=== PATIENT | female | born 1970 | race Caucasian/White ===

== ENCOUNTER 2024-08-25 14:59 | Inpatient (IN) | payer BC ==
[~2024-08-25] VITALS: Ht 170.2 cm; Wt 100.6 kg
[2024-08-25] MEDS ORDERED: LISINOPRIL10 MG PO (15:12)
[2024-08-25] MEDS ORDERED: LISINOPRIL-HCT1 EAC1 PO (15:12)
[2024-08-25] MEDS ORDERED: TORSEMIDE20 MG PO (15:12)
[2024-08-25] MEDS ORDERED: ATORVASTATIN CA20 MG PO (15:12)
[2024-08-25] MEDS ORDERED: METFORMIN HCL500 M1 PO (15:12)
[2024-08-25] MEDS ORDERED: AMLODIPINE BESYL5 MG PO (15:12)
[2024-08-25] MEDS ORDERED: VITAMIN D21250 MCG PO (15:13)
[2024-08-25] MEDS ORDERED: CARVEDILOL3.125 MG PO (15:13)
[2024-08-25] MEDS ORDERED: FERROUS SULFAT325 M1 PO (15:13)
[2024-08-25] MEDS ORDERED: LANTUS SOL100 UNIT/1 SUB-Q (15:13)
[2024-08-25] MEDS ORDERED: JARDIANCE25 MG PO (15:13)
[2024-08-25 15:37] LABS: ALBUMIN 2.7 g/dL (3.4-5.0); ALBUMIN/GLOBULIN RATIO 0.75 (1.1-2.4); ANION GAP 17.8 (7-21); BILIRUBIN, TOTAL 0.2 ng/dL (0.2-1.0); BUN/CREATININE RATIO 48.01 (6.0-28.6); CALCIUM 9.1 mg/dL (8.5-10.1); CREATININE, SERUM 2.52 mg/dL (0.55-1.02); POTASSIUM 5.8 mmol/L (3.5-5.1); PROTEIN, TOTAL 6.3 g/dL (6.4-8.2)
[2024-08-25 15:57] LABS: BASOPHILS 0.4 % (0-2); EOSINOPHILS 5.2 % (0-6); HEMATOCRIT 24.4 % (35.0-50.0); HEMOGLOBIN 8.2 g/dL (12.0-18.0); LYMPHOCYTES 10.6 % (24-44); MCH 31.7 (27-36); MCHC 33.7 g/dl (30-36); MONOCYTES 3.7 % (0-12); NEUTROPHILS 80.1 % (39-80); PLATELET COUNT 174 K/uL (140-440); RBC 2.59 M/ul (4.3-5.7); RDW 15.4 (10.5-15.0)
[2024-08-25] MEDS ORDERED: SODIUM CHLORIDE 0.9% 1,000 ML IV ONE (16:30)
[2024-08-25] MEDS ORDERED: IBLOOD GLUCOSE TEST STRIP 1 EA TEST XX PRN (17:30)
[2024-08-25] MEDS ORDERED: DEXTROSE 5% 1,000 ML IV PRN (17:30)
[2024-08-25] MEDS ORDERED: GLUCAGON,HUMAN RECOMBINANT 1 MG/ML VIAL SUB-Q PRN (17:30)
[2024-08-25] MEDS ORDERED: DEXTROSE 50% 50 ML SYR IV PRN ×2 (17:30)
[2024-08-25] MEDS ORDERED: SODIUM POLYSTYRENE SULFONATE 15 GM/60 ML UDC PO ONE (17:30)
[2024-08-25 17:40] LABS: BILIRUBIN, URINE NEGATIVE (negative); BLOOD/HGB, URINE TRACE-I (Negative); KETONE, URINE NEGATIVE (Negative); LEUK ESTERASE, URINE NEGATIVE (negative); NITRITE, URINE NEGATIVE (negative); PH, URINE 5.5 (5-7)
[2024-08-25 17:47] LABS: BACTERIA, URINE NONE SEEN /hpf (negative); CRYSTALS, URINE NONE SEEN (0-1+); EPITHELIAL CELLS, URINE SQUAMOUS 1+ /lpf (0-1+); RED BLOOD CELLS, URINE 0-1 /hpf (0-5)
[2024-08-25 17:48] LABS: COLLECTION TYPE, URINE CLEAN CATCH; REFLEX CULTURE, URINE No (No)
[2024-08-25 18:08] VITALS: BP 152/62
--- NOTE | 2024-08-25 18:47 | NUR ---
REC'D FROM ED FOR ADMISSION. PT MOTHER AT BEDSIDE. PT PLEASANT AND COOPERATIVE WITH HISTORY AND ADMISSION PROCESS. PT TEARFUL REGARDING HOSPITALIZATION. PT A&OX4, RA, IV SL TO L FA WNL, TELE #4, SB 50'S. PT ORIENTED TO ROOM AND CALL DINERO, SIDERAILS UP X 2, CALL DINERO IN REACH, BED LOW POSITION.
[2024-08-25 20:30] VITALS: BP 143/54
[2024-08-25] MEDS ORDERED: IBLOOD GLUCOSE TEST STRIP 1 EA TEST XX SCH (21:00)
[2024-08-25] MEDS ORDERED: INSULIN LISPRO 100 UNIT/ML ML SUB-Q SCH (21:00)
[2024-08-25] MEDS ORDERED: HEParin SOD (PORCINE) 5,000 UNIT/ML SDV SUB-Q SCH (21:00)
[2024-08-25] MEDS ORDERED: KETOROLAC 0.5% OU SCH (21:15)
[2024-08-25] MEDS ORDERED: [UNRECOGNIZED DRUG - OTHER] OU SCH (21:15)
--- NOTE | 2024-08-25 22:59 | NUR ---
Patient resting, eyes closed, respirations non labored. Bed alarm intact. Personal supplies and call light within reach.
[2024-08-25 23:17] VITALS: BP 143/54
[2024-08-26] VITALS (9 sets, daily range): BP systolic 138–159; BP diastolic 49–60
--- NOTE | 2024-08-26 04:59 | NUR ---
Patient called to use restroom. Spot checked blood sugar per patient request. Blood sugar of 94 per bedside monitor. Patient provided with a snack per her request. Patient assisted back to bed. Call light within reach.
[2024-08-26 05:43] LABS: BASOPHILS 0.6 % (0-2); EOSINOPHILS 4.7 % (0-6); HEMATOCRIT 21.4 % (35.0-50.0); HEMOGLOBIN 7.2 g/dL (12.0-18.0); LYMPHOCYTES 12.5 % (24-44); MCH 31.3 (27-36); MCHC 33.4 g/dl (30-36); MCV 93.8 fl (81-99); MONOCYTES 4.2 % (0-12); PLATELET COUNT 149 K/uL (140-440); RBC 2.28 M/ul (4.3-5.7); RDW 15.5 (10.5-15.0)
[2024-08-26 06:05] LABS: ANION GAP 17.6 (7-21); BUN/CREATININE RATIO 47.71 (6.0-28.6); CALCIUM 8.6 mg/dL (8.5-10.1); CREATININE, SERUM 2.41 mg/dL (0.55-1.02); MAGNESIUM 2.9 mg/dL (1.8-2.4); PHOSPHORUS, INORGANIC 6.4 mg/dL (2.5-4.9); POTASSIUM 5.6 mmol/L (3.5-5.1)
--- NOTE | 2024-08-26 07:45 | NUR ---
ASSESSMENT COMPLETE. PT RESTING IN BED WITH CALL LIGHT WITHIN REACH, NO REQUESTS AT THIS TIME.
--- NOTE | 2024-08-26 07:50 | NUR ---
PT DENIED TO SIT UP IN CHAIR FOR BREAKFAST. TOOK PT BLOOD SUGAR AND CHARTED IT. PT NEEDED TO USE THE RESTROOM AND IS INDEPENDENT
[2024-08-26] MEDS ORDERED: OPTH OU SCH (09:00)
[2024-08-26] MEDS ORDERED: KETOROLAC TROMETHAMINE 0.5% OU SCH (09:00)
[2024-08-26] MEDS ORDERED: prednisoLONE ACETATE 1% 10 ML BTL OU SCH (09:00)
--- NOTE | 2024-08-26 09:36 | NUR ---
OT IN TO SEE PT
--- NOTE | 2024-08-26 10:12 | NUR ---
OT WORKING WITH PATIENT. WILL RETURN TO SPEAK WITH PATIENT
--- NOTE | 2024-08-26 10:32 | NUR ---
UR CLINICAL REVIEW: [facility] INPT CRITERIA FOR TASIA WITH HYPERKALEMIA [facility] PPO INPT 08/25/24 @ 1738 ORDER MATCHES REG RECORDS SENT FOR AUTH REVIEW DISCHARGE TO HOME WHEN STABLE 08/28/24
--- NOTE | 2024-08-26 11:10 | NUR ---
PATIENT ALERT AND ORIENTED. MOTHER, ENRIQUE, IN ROOM WITH PATIENT. PATIENT LIVES WITH HER MOTHER IN [place]. THEY DO HAVE STEPS TO GET IN WHICH PATIENT STATES SHE HAS NO ISSUES USING. SHE HAS NO DME. HOWEVER, SHE RECENTLY HAD CATARACT SURGERY AND HAS FELT UNSTEADY WITH HER CHANGE OF VISION AND IS CONSIDERING A WALKING STICK OR WALKER. ENRIQUE STATES "WE CAN FIGURE THAT OUT ON OUR OWN, I THINK." INFORMATION FOR CLEARVIEW PROVIDED IT SEEMS SHE IS NEEDING WALKER FOR SHORT TERM. PATIENT DOES NOT DRIVE CURRENTLY DUE TO RECENT EYE SURGERY BUT WILL LIKELY BE ABLE TO START DRIVING AGAIN AFTER SHE GETS GLASSES IN SEPTEMBER. HER MOTHER ASSISTS HER WITH TRANSPORTATION. PATIENT AND MOTHER BOTH DENY ANY FINANCIAL HARDSHIP. THEY ARE ABLE TO AFFORD UTILITES, FOOD AND MEDICATION WITHOUT DIFFICULTY. PLANNING TO DISCHARGE TO HOME WHEN MEDICALLY STABLE. NO CURRENT CM NEEDS.
[2024-08-26] MEDS ORDERED: PHARMACY RENAL DOSE ADJUSTMENT 1 DOSE MISC PO SCH (12:00)
--- NOTE | 2024-08-26 12:23 | NUR ---
PAULETTE IN TO VISIT [facility] PT AND PT'S MOM.
[2024-08-26] MEDS ORDERED: FUROSEMIDE 100 MG/10 ML VIAL IV ONE (12:30)
[2024-08-26] MEDS ORDERED: PREDNISOLONE ACE5 ML OP (13:41)
--- NOTE | 2024-08-26 16:04 | NUR ---
PT UP TO RESTROOM TO VOID AND HAVE SM BM. PT TOLERATED WELL. PT BACK TO BED AND WATCHING TV. CALL LIGHT WITHIN REACH.
[2024-08-26] MEDS ORDERED: ACULAR5 ML OP (16:44)
--- NOTE | 2024-08-26 16:45 | NUR ---
medications reconciled with patient. Patient is using her own eye drops. Please assure that they are returned to her prior to discharge
[2024-08-26] MEDS ORDERED: VITAMIN D325 MC2 PO (16:48)
[2024-08-26] MEDS ORDERED: VITAMIN C250 MG PO (16:48)
--- NOTE | 2024-08-26 17:28 | NUR ---
PT SITTING UP IN BED EATING DINNER AND WATCHING TV, MOM AT BEDSIDE. CALL LIGHT WITHIN REACH.
--- NOTE | 2024-08-26 18:42 | NUR ---
PT RESTING IN BED WITH CALL LIGHT WITHIN REACH, NO REQUESTS AT THIS TIME.
[2024-08-26] MEDS ORDERED: MELATONIN 3 MG TAB PO SCH (21:00)
[2024-08-27 01:34] VITALS: BP 141/57
--- NOTE | 2024-08-27 01:37 | NUR ---
[employer] OBTAINED VITALS AND I&O. PT STATES NO NEEDS AT THIS TIME. CALL LIGHT WITHIN REACH.
--- NOTE | 2024-08-27 04:53 | NUR ---
Patient up to the restroom to void. Patient reports she slept well last night. No current pain. Legs elevated. Patient denies needs, personal supplies and call light within reach.
[2024-08-27 05:43] VITALS: BP 153/61
[2024-08-27 05:53] LABS: BASOPHILS 0.5 % (0-2); EOSINOPHILS 3.7 % (0-6); HEMATOCRIT 20.7 % (35.0-50.0); HEMOGLOBIN 6.8 g/dL (12.0-18.0); LYMPHOCYTES 12.2 % (24-44); MCH 31.2 (27-36); MCV 94.6 fl (81-99); NEUTROPHILS 78.6 % (39-80); PLATELET COUNT 133 K/uL (140-440); RBC 2.19 M/ul (4.3-5.7); RDW 15.5 (10.5-15.0)
[2024-08-27 06:14] LABS: ANION GAP 17.4 (7-21); BUN/CREATININE RATIO 46.18 (6.0-28.6); CALCIUM 8.6 mg/dL (8.5-10.1); CREATININE, SERUM 2.36 mg/dL (0.55-1.02); MAGNESIUM 2.8 mg/dL (1.8-2.4); PHOSPHORUS, INORGANIC 6.1 mg/dL (2.5-4.9); POTASSIUM 5.4 mmol/L (3.5-5.1)
[2024-08-27] MEDS ORDERED: FUROSEMIDE 100 MG/10 ML VIAL IV ONE ×2 (07:45→14:00)
--- NOTE | 2024-08-27 08:00 | NUR ---
MORNING ASSESSMENT COMPLETE. PT IS DROWSY, AROUSABLE. PT COMMUNICATES WAS GIVEN MELATONIN LAST NIGHT. DENIES ANY DISCOMFORT. HEARTRATE IS BRADYCARDIAC. EDEMA NOTED TO THE BILAT LOWER EXT 2+, AND BILAT FEET 3+. CMS INTACT. CALL LIGHT IN REACH.
--- NOTE | 2024-08-27 08:48 | NUR ---
RN and student in room. Once done, patient was assisted to the bathroom.
[2024-08-27 09:15] VITALS: BP 141/55
--- NOTE | 2024-08-27 09:18 | NUR ---
WENT IN ROOM TO REVIEW BLOOD PRODUCT OPTIONS WITH PATIENT, PT DOES NOT HAVE HER JEHOVA WITNESS BLOOD PRODUCT CARD WITH HER, SHE SAYS ITS BEEN A WHILE SINCE LAST UPDATED. SHE WILL KEEP THE OPTIONS AND MD WAS ALSO PRESENT DISCUSSING EPOGEN OPTION WITH PATIENT. PT WILL WAIT UNTIL HER MOTHER IS PRESENT TO DISCUSS FURTHER AT THIS TIME.
--- NOTE | 2024-08-27 10:14 | NUR ---
Patient requested ice chips for their water. No other cares were requested.
[2024-08-27 13:15] VITALS: BP 154/53
[2024-08-27 13:35] LABS: CREATININE, RANDOM URINE 24.26 mg/dL (NOT ESTABLISHED)
--- NOTE | 2024-08-27 14:09 | NUR ---
ALERT AND ORIENTED IN BED. CONTINUES TO DENY CM NEEDS AT THIS TIME. SHE IS STILL PLANNING ON GOING HOME WITH HER MOTHER WHEN SHE IS DISCHARGED.
--- NOTE | 2024-08-27 14:38 | NUR ---
Patient got up and showered. Bed linens were changed. Clean gown, socks, and underwear were given. IV and Tele were wrapped.
--- NOTE | 2024-08-27 15:39 | NUR ---
Urine sample collected and sent to the lab.
--- NOTE | 2024-08-27 17:33 | NUR ---
Tele battery changed.
[2024-08-27 17:40] VITALS: BP 154/53
[2024-08-27 17:52] VITALS: BP 151/42
--- NOTE | 2024-08-27 18:51 | NUR ---
Patient was resting in bed with mom in room watching football.
--- NOTE | 2024-08-27 19:12 | EKG ---
[facility] [address] [facility] [place] [address] Signed Sinus bradycardia Otherwise normal ECG No previous ECGs available Confirmed by Ton Hoyt MD ([id number]) on 08/27/2024 7:12:47 PM Electronically Signed By: TON HOYT MD 08/27/241911 PATIENT NAME: ELIAN MONGE Electrocardiogram DATE OF : 74 PHYSICIAN: TON HOYT MD REPORT #: [id number] REPORT IS CONFIDENTIAL AND NOT TO BE RELEASED WITHOUT AUTHORIZATION
--- NOTE | 2024-08-27 19:27 | NUR ---
SHIFT REPORT RECEIVED FROM AZIZA RN IHSAN/CATE AT BEDSIDE. pt AWAKE AND RESTING IN BED, WATCHING TV. 3+ EDEMA NOTED TO BLE, pt REPORTS THIS HAS "BEEN GOING ON FOR AWHILE". IV SITE WNL, SALINE LOCKED. pt DENIES NEEDS OR CONCERNS, CALL LIGHT IN REACH. EDUCATED TO USE CALL LIGHT BEFORE GETTING OOB, pt VERBALIZED UNDERSTANDING.
--- NOTE | 2024-08-27 21:30 | NUR ---
ASSESSMENT COMPLETE, SCHEDULED MEDS GIVEN-SEE EMAR. pt DENIES LIGHTHEADEDNESS, DIZZINESS, ECT WITH AMBULATION, STEADY ON FEET AND CALLS APPROPRIATELY. SBA. VSS, pt DENIES PAIN AND NAUSEA. 3+ BLE EDEMA, BLE ELEVATED ON PILLOW, pt STATES, "IT'S BEEN GOING ON SINCE THE BEGINNING OF THE YEAR". IV SITE WNL, FLUSHES EASILY AND IS SALINE LOCKED. NO ADDITIONAL NEEDS OR CONCERNS, CALL LIGHT IN REACH.
--- NOTE | 2024-08-27 23:43 | NUR ---
ROUNDED ON pt, pt RESTING IN BED WITH EYES CLOSED AND ON RA. RR EVEN AND UNLABORED. NO DISTRESS NOTED, CALL LIGHT IN REACH.
--- NOTE | 2024-08-27 23:56 | NUR ---
CALL LIGHT ANSWERED. PT NEEDED TO USE BATHROOM. LEGAL CONSULTANT SBA TO BATHROOM. PT VOIDED AND IS NOW BACK IN BED. OUTPUT MEASURED. PT STATES NO FURTHER NEEDS AT THIS TIME. CALL LIGHT WITHIN REACH.
[2024-08-28] VITALS (10 sets, daily range): BP systolic 148–172; BP diastolic 57–65
--- NOTE | 2024-08-28 01:04 | NUR ---
ROUNDED ON pt, pt AWAKE AND RESTING IN BED. ON RA, RR EVEN AND UNLABORED. pt DENIES NEEDS OR CONCERNS. CALL LIGHT IN REACH.
--- NOTE | 2024-08-28 02:12 | NUR ---
rounded on pt, pt awoke easily to voice. no acute changes to assessment. pt denies needs or concerns, call light in reach. on ra, rr even and unlabored. board updated.
--- NOTE | 2024-08-28 04:20 | NUR ---
ROUNDED ON pt, pt UP SBA TO VOID AND VOIDED 500MLS URINE AND BACK IN BED. NO ADDITIONAL NEEDS OR CONCERNS. CALL LIGHT IN REACH.
--- NOTE | 2024-08-28 05:34 | NUR ---
ROUNDED ON pt, pt AWAKE AND RESTING IN BED. ON RA, RR EVEN AND UNLABORED. NO DISTRESS NOTED. CALL LIGHT IN REACH. pt DENIES NEEDS OR CONCERNS.
[2024-08-28 05:35] LABS: BASOPHILS 0.6 % (0-2); EOSINOPHILS 3.4 % (0-6); HEMATOCRIT 20.2 % (35.0-50.0); HEMOGLOBIN 6.8 g/dL (12.0-18.0); LYMPHOCYTES 16.3 % (24-44); MCH 31.3 (27-36); MCHC 33.5 g/dl (30-36); MCV 93.6 fl (81-99); MONOCYTES 5.5 % (0-12); NEUTROPHILS 74.2 % (39-80); PLATELET COUNT 145 K/uL (140-440); RBC 2.16 M/ul (4.3-5.7); RDW 15.5 (10.5-15.0)
[2024-08-28 05:48] LABS: ANION GAP 17.1 (7-21); BUN/CREATININE RATIO 48.18 (6.0-28.6); CALCIUM 8.9 mg/dL (8.5-10.1); CREATININE, SERUM 2.2 mg/dL (0.55-1.02); MAGNESIUM 2.8 mg/dL (1.8-2.4); PHOSPHORUS, INORGANIC 5.8 mg/dL (2.5-4.9); POTASSIUM 5.1 mmol/L (3.5-5.1)
--- NOTE | 2024-08-28 05:54 | NUR ---
INSPECTOR HEATING AND REFRIGERATION OBTAINED VITALS AND I&O. PT STATES NO NEEDS AT THIS TIME. CALL LIGHT WITHIN REACH.
--- NOTE | 2024-08-28 07:43 | NUR ---
RECIEVED HAND OFF FROM PT BRIM FLEXER RN. PT RESTING COMFORTABLY IN BED WITH EYES CLOSED AND CALL LIGHT WITHIN REACH PT HAS NO NEEDS AT THIS TIME.
--- NOTE | 2024-08-28 08:19 | NUR ---
PATIENT IN BED AT THIS TIME. RECORDS AND INFORMATION MANAGER CHARTED PATIENTS BLOOD SUGAR AND DID HOURLY ROUNDS. RECORDS AND INFORMATION MANAGER ALSO PROVIDED FRESH ICE WATER. CALL LIGHT WITHIN REACH, NO FURTHER NEEDS AT THIS TIME.
[2024-08-28] MEDS ORDERED: FUROSEMIDE 100 MG/10 ML VIAL IV SCH (09:00)
--- NOTE | 2024-08-28 09:52 | NUR ---
PATIENT IN CHAIR AT THIS TIME. EXECUTIVE MANAGER CHARTED VITALS AND I&O'S. CALL LIGHT WITHIN REACH, NO FURTHER NEEDS AT THIS TIME.
--- NOTE | 2024-08-28 09:52 | NUR ---
PER MD IN ROUNDS, CARLITO TO DC THE [facility] STOOLS AT THIS TIME. ORDERS UPDATED. PRIMARY RN INFORMED.
[2024-08-28 11:05] LABS: CHOLESTEROL/HDL RATIO 1.9
--- NOTE | 2024-08-28 11:33 | NUR ---
Patient in bed at this time. BOARD CERTIFIED FAMILY PHYSICIAN went into patients room for hourly rounds. Call light within reach, no further needs at this time.
[2024-08-28 12:03] LABS: IRON BINDING CAPACITY TOTAL 300 ug/dL (240-450); IRON,SERUM OR PLASMA 43 ug/dL (28-170); TRANSFERRIN SATURATION 14 %sat (20-50)
[2024-08-28] MEDS ORDERED: FERROUS SULFATE 325 MG TAB PO SCH (12:22)
[2024-08-28] MEDS ORDERED: INSULIN GLARGINE-YFGN 100 UNIT/ML ML SUB-Q SCH (12:29)
[2024-08-28 13:22] LABS: FERRITIN 242 ng/mL (13-150)
--- NOTE | 2024-08-28 15:11 | NUR ---
UR CLINICAL REVIEW: [facility] INPT CRITERIA FOR TASIA WITH HYPERKALEMIA, VARIANCE FOR GL DAY2. MEETS INPT CRITERIA FOR ANEMIA. [facility] PPO INPT 08/25/24 @ 1731 ORDER MATCHES REG RECORDS SENT FOR AUTH REVIEW DISCHARGE TO HOME WHEN STABLE 08/31/24
--- NOTE | 2024-08-28 17:59 | NUR ---
PT SITTING UP IN BED TALKING WITH 3 VISITORS. PT DINNER WAS DELIVERED AND MEDICATION GIVEN SEE EMAR. PT HAS NO CONCERNS AT THIS TIME CALL LIGHT WITHIN REACH.
--- NOTE | 2024-08-28 19:26 | NUR ---
RECEIVED REPORT FROM CHANDRIKA CHAMPAGNE. PT RESTING IN BED, ON PHONE W/ FAMILY. DENIES NEEDS. CALL LIGHT WITHIN REACH.
--- NOTE | 2024-08-28 20:00 | NUR ---
PT RESTING COMFORTABLY IN BED. DENIES PAIN. USES CALL LIGHT APPROPRIATELY. VSS. PT IND IN ROOM TO BR. A&Ox4. LSC DIM TO BASES-ENC DB & C. HRR. 3+ EDEMA TO BLE-PT STATES IS ONGOING. CHRONIC TINGLING TO BLE UNCHANGED. BTA. VOIDS WNL. LH SL WNL. DENIES ANY FURTHER NEEDS. CALL LIGHT WITHIN REACH.
--- NOTE | 2024-08-28 22:30 | NUR ---
PT APPEARS TO BE ASLEEP. BREATHING EVEN AND UNLABORED. CALL LIGHT WITHIN REACH.
[2024-08-29] VITALS (7 sets, daily range): BP systolic 149–178; BP diastolic 49–74
--- NOTE | 2024-08-29 00:16 | NUR ---
PT APPEARS TO BE ASLEEP, RESP EVEN AND UNLABORED. CALL LIGHT WITHIN REACH.
--- NOTE | 2024-08-29 03:33 | NUR ---
PT SLEEPING SOUNDLY, APPEARS COMFORTABLE. CALL LIGHT WITHIN REACH.
--- NOTE | 2024-08-29 05:10 | NUR ---
EXTENSION SPECIALIST OBTAINED VITALS AND I&O. PT STATES NO FURTHER NEEDS AT THIS TIME. CALL LIGHT WITHIN REACH.
--- NOTE | 2024-08-29 05:32 | NUR ---
PT AWAKE, DENIES NEEDS. CALL LIGHT WITHIN REACH.
[2024-08-29 05:46] LABS: BASOPHILS 0.6 % (0-2); EOSINOPHILS 3.9 % (0-6); HEMATOCRIT 20.5 % (35.0-50.0); LYMPHOCYTES 13.8 % (24-44); MCH 31.4 (27-36); MCV 92.3 fl (81-99); MONOCYTES 4.2 % (0-12); NEUTROPHILS 77.5 % (39-80); PLATELET COUNT 152 K/uL (140-440); RBC 2.22 M/ul (4.3-5.7)
[2024-08-29 06:03] LABS: ANION GAP 12.1 (7-21); BUN/CREATININE RATIO 47.82 (6.0-28.6); CALCIUM 8.9 mg/dL (8.5-10.1); CREATININE, SERUM 2.07 mg/dL (0.55-1.02); MAGNESIUM 2.8 mg/dL (1.8-2.4); PHOSPHORUS, INORGANIC 5.7 mg/dL (2.5-4.9); POTASSIUM 5.1 mmol/L (3.5-5.1)
--- NOTE | 2024-08-29 07:20 | NUR ---
VERBAL REPORT RECEIVED FROM CHANDRIKA CARREON. PT UP TO BATHROOM WITH RODOLFO WEISS.
--- NOTE | 2024-08-29 07:21 | NUR ---
REPORT RECEIVED ON PT FROM CHANDRIKA CARREON.
--- NOTE | 2024-08-29 07:31 | NUR ---
PT UP IN RESTROOM, DEPARTMENT HELPER IN ROOM.
--- NOTE | 2024-08-29 07:58 | NUR ---
PT SITS UP IN RECLINER, CALL LIGHT IN REACH, PT EATS BREAKFAST, RECEIVES AM MEDICATIONS. NO REQUESTS AT THIS TIME.
--- NOTE | 2024-08-29 13:05 | NUR ---
PT. RESTING IN BED, EYES CLOSED. RESPIRATIONS EVEN AND UNLABORED. CALL LIGHT AND NEEDED ITEMS WITHIN REACH.
--- NOTE | 2024-08-29 15:23 | NUR ---
PT UP IN RESTROOM INDEPENDENT. PT STATES SHE DOES NOT NEED ANYTHING.
--- NOTE | 2024-08-29 18:12 | NUR ---
PT SITTING UP IN BED WITH MOTHER AT BEDSIDE. NO S/S OF PAIN/ DISTRESS. DENIES ANY NEEDS AT THIS TIME. RESPIRATIONS EVEN AND UNLABORED. CALL LIGHT AND NEEDED ITEMS WITHIN REACH.
--- NOTE | 2024-08-29 18:28 | NUR ---
HER MOM IS VISITING.
--- NOTE | 2024-08-29 19:26 | NUR ---
RECEIVED REPORT FROM LAURA RN'S. PT RESTING IN BED, CALL LIGHT WITHIN REACH. DENIES NEEDS AT THIS TIME.
--- NOTE | 2024-08-29 21:00 | NUR ---
PT RESTING IN BED COMFORTABLY. VSS EXCEPT B/P SLIGHTLY ELEVATED. DENIES PAIN. LSC. HRR. BTA. REPORTS BM TODAY. VOIDS WNL. 3+ EDEMA TO BLE. SL LW WNL. RIGHT PUPIL > LEFT PUPIL. RIGHT PUPIL SLUGGISH. PT MANAGES OWN EYE DROPS R/T RECENT EYE SURG. IND IN ROOM. DENIES FURTHER NEEDS. CALL LIGHT WITHIN REACH.
--- NOTE | 2024-08-29 22:44 | NUR ---
PT SLEEPING SOUNDLY. APPEARS COMFORTABLE. CALL LIGHT WITHIN REACH.
[2024-08-30] VITALS (9 sets, daily range): BP systolic 159–182; BP diastolic 50–62
--- NOTE | 2024-08-30 04:08 | NUR ---
PT SLEEPING SOUNDLY. APPEARS COMFORTABLE. CALL LIGHT WITHIN REACH.
[2024-08-30 05:30] LABS: BASOPHILS 0.7 % (0-2); HEMATOCRIT 21.7 % (35.0-50.0); HEMOGLOBIN 7.2 g/dL (12.0-18.0); LYMPHOCYTES 14.3 % (24-44); MCH 31.2 (27-36); MCHC 33.3 g/dl (30-36); MCV 93.7 fl (81-99); MONOCYTES 3.8 % (0-12); NEUTROPHILS 77.2 % (39-80); PLATELET COUNT 165 K/uL (140-440); RBC 2.32 M/ul (4.3-5.7); RDW 15.5 (10.5-15.0)
[2024-08-30 05:43] LABS: ANION GAP 14.1 (7-21); BUN/CREATININE RATIO 47.93 (6.0-28.6); CALCIUM 8.9 mg/dL (8.5-10.1); CREATININE, SERUM 1.94 mg/dL (0.55-1.02); MAGNESIUM 2.7 mg/dL (1.8-2.4); PHOSPHORUS, INORGANIC 5.7 mg/dL (2.5-4.9); POTASSIUM 5.1 mmol/L (3.5-5.1)
--- NOTE | 2024-08-30 06:51 | NUR ---
PT APPEARS ASLEEP. CALL LIGHT WITHIN REACH.
--- NOTE | 2024-08-30 07:29 | NUR ---
HAND OFF COMPLETED WITH PT NEUROSURGERY SPINE PHYSICIAN RN. PT SITTING ON EDGE OF BED COMFORTABLY AND EXPRESSES NO NEEDS AT THIS TIME. CALL LIGHT WITHIN REACH.
--- NOTE | 2024-08-30 09:42 | NUR ---
patient lying bed, vitals and i/o's obtained. pt has no further requests at this time. call light within reach.
--- NOTE | 2024-08-30 13:30 | NUR ---
PATIENT VITALS AND I/O'S COMPLETED. PATIENT SET UP FOR SHOWER. PT INDP. CALL LIGHT WITHIN REACH.
--- NOTE | 2024-08-30 17:26 | NUR ---
PATIENT VITALS AND I/O'S COMPLETED. ICE AND ICE WATER GIVEN. PT HAS NO OTHER NEEDS AT THIS TIME. CALL LIGHT WITHIN REACH.
--- NOTE | 2024-08-30 22:06 | NUR ---
Awake, alert and oriented, cooperative, no c/o pain. CBG 186, received 3 units SSI, SL patent LA. edema to LE 3+ mid calf to toes. elevated. On room air, clear lungs, abd soft. Independent in room. does own pericare, did own eye qtts
[2024-08-31 00:57] VITALS: BP 163/60; BP 163/87
--- NOTE | 2024-08-31 00:58 | NUR ---
DR WHITING NOTIFIED OF PT BP 182/62 MAP 93 EARLIER ONT HE SHIFT, BP RACHECKED AT THIST TATYANA, AND NOTIFIED OF NEW BP, NO NEW ORDERS, PT AWAKE, ALERT AND ORIENTED, DENIES H/A, CP OR VISUAL CHANGES
[2024-08-31 04:53] VITALS: BP 168/60
[2024-08-31 04:55] VITALS: BP 168/60
--- NOTE | 2024-08-31 05:28 | NUR ---
Pt awakens easily, no c/o pain, voiding large amount of medium yellow urine. independent in room. edema to LE slightly improved, have been elevated most of this shift. Back to bed, pleasant and cooperative
[2024-08-31 05:34] LABS: BASOPHILS 0.7 % (0-2); HEMATOCRIT 21.5 % (35.0-50.0); HEMOGLOBIN 7.2 g/dL (12.0-18.0); MCH 31.3 (27-36); MCHC 33.8 g/dl (30-36); MCV 92.6 fl (81-99); NEUTROPHILS 72.3 % (39-80); PLATELET COUNT 162 K/uL (140-440); RBC 2.32 M/ul (4.3-5.7); RDW 15.5 (10.5-15.0)
[2024-08-31 05:55] LABS: ALBUMIN 2.2 g/dL (3.4-5.0); ALBUMIN/GLOBULIN RATIO 0.61 (1.1-2.4); ANION GAP 13.7 (7-21); BILIRUBIN, TOTAL 0.2 ng/dL (0.2-1.0); BUN/CREATININE RATIO 45.31 (6.0-28.6); CREATININE, SERUM 1.92 mg/dL (0.55-1.02); POTASSIUM 4.7 mmol/L (3.5-5.1); PROTEIN, TOTAL 5.8 g/dL (6.4-8.2)
[2024-08-31 05:56] LABS: MAGNESIUM 2.6 mg/dL (1.8-2.4); PHOSPHORUS, INORGANIC 5.2 mg/dL (2.5-4.9)
--- NOTE | 2024-08-31 07:40 | NUR ---
RECIEVED MORNING REPORT FROM CUSTOMER MANAGEMENT SPECIALIST RN. PT LAYING IN BED AWAKE AND COMFORTABLY. PT REQUESTED WATER BUT STATES NO OTHER NEEDS AT THIS TIME. PT CALL LIGHT WITHIN REACH.
--- NOTE | 2024-08-31 08:47 | NUR ---
Patient was sitting upright in bed eating breakfast. Blood sugar taken, reported to RN.
[2024-08-31 09:35] VITALS: BP 173/56
--- NOTE | 2024-08-31 11:46 | NUR ---
Mother in room visiting. Patient requested a cup of ice. No other cares were requested.
--- NOTE | 2024-08-31 12:02 | NUR ---
UR CONCURRENT REVIEW: [facility] GL DAY 2 [facility] PPO INPT 08/25/24 @ 6808 ORDER MATCHES REG WILL FAX UPDATED CLINICALS FOR REVIEW DISCHARGE TO HOME WHEN STABLE ANTICIPATE DC TODAY
--- NOTE | 2024-08-31 13:00 | NUR ---
In to speak with pt. Dr. Browning in the room and discussing Dc. Discussed dc plan and pt will need to see nephrology and already sees cardiology in [place]. I will contact the nephrology office at [place] to send a referral. Pt would prefer this instead of [facility]. She denies other needs mom is getting lunch, but will be back to take pt home shortly.
--- NOTE | 2024-08-31 13:30 | NUR ---
Spoke with Dr. Chambers's office at [place]. I will fax pts chart requesting a referral. Office states they are seeing pt in Oct. Face sheet, H&P, progess notes, labs, meds, imaging faxed to Dr. Torres office requesting referral for this pt to see them. I then called and scheduled this pt to see Pam Westfall sep 08 at 10:50 for a followup.
[2024-08-31 13:55] VITALS: BP 159/63
--- NOTE | 2024-08-31 14:03 | NUR ---
PT NOT AVAILABLE FOR VISIT. PROVIDED PRAYER.
== END 2024-08-31 14:09 | disposition home or self-care (01) | DRG 682 ==
LOC: ED 14:59 → MS 17:31
PROVIDERS: Emergency Medicine; Family Medicine; ADMIT Student in an Organized Health Care Education/Training Program; ATTEND Student in an Organized Health Care Education/Training Program
DX: N17.9 Acute kidney failure, unspecified (principal); I50.33 Acute on chronic diastolic (congestive) heart failure; E87.5 Hyperkalemia; E11.21 Type 2 diabetes mellitus with diabetic nephropathy; R53.1 Weakness; I27.20 Pulmonary hypertension, unspecified; I11.0 Hypertensive heart disease with heart failure; D64.9 Anemia, unspecified; E78.5 Hyperlipidemia, unspecified; E66.9 Obesity, unspecified; I08.1 Rheumatic disorders of both mitral and tricuspid valves; Z98.42 Cataract extraction status, left eye; Z98.41 Cataract extraction status, right eye; Z79.811 Long term (current) use of aromatase inhibitors; Z79.899 Other long term (current) drug therapy; Z79.84 Long term (current) use of oral hypoglycemic drugs; Z79.4 Long term (current) use of insulin; Z68.34 Body mass index [BMI] 34.0-34.9, adult
CPT/HCPCS: 36415; 71046; 76770; 80048; 80053; 80061; 81001; 82570; 82728; 83036; 83550; 83735; 83880; 84100; 84156; 85025; 93005; 93010; 93306; 97161; 97165; 97535; 99285; A9270; J1644; J1815; J1940; J7030

== ENCOUNTER 2024-09-24 10:00 | Day surgery (SDC) | payer BC ==
[2024-09-22 09:39] VITALS: BP 134/52
[~2024-09-24] VITALS: Ht 170.2 cm; Wt 102.4 kg
--- NOTE | ~2024-09-24 | OR ---
[facility] [address], [place] [address] Draft DATE OF OPERATION: 09/24/2024 SURGEON: Karthik Fernando MD PREOPERATIVE DIAGNOSES: 1. Severe pulmonary hypertension. 2. Pulmonary pressure greater than 60 mm with subsequent congestive heart failure. 3. Anemia, unknown etiology. POSTOPERATIVE DIAGNOSES: 1. Severe pulmonary hypertension. 2. Pulmonary pressure greater than 60 mm with subsequent congestive heart failure. 3. Normal-appearing upper endoscopy. 4. Linear polyp of cecum (excised) and erosive lesion, left colon (excised and clipped). PROCEDURES: 1. Esophagogastroduodenoscopy with biopsy. 2. Total colonoscopy to cecum with cold snare polypectomy and cold morcellation polypectomy with application of hemoclips. ANESTHESIA: Intravenous sedation, Sanford Reilly CRNA; ketamine, Versed, and fentanyl. INDICATIONS: This 54-year-old white woman is a patient of Pam Epps. She was referred for upper endoscopy and colonoscopy on the basis of anemia of uncertain etiology. The patient was admitted to the hospital last summer with significant pulmonary edema at all. She has persistent bilateral lower extremity edema. I have reviewed her CT scan with the radiologist showing no evidence of caval obstruction or other similar problem. She is admitted at this time to undergo upper endoscopy and colonoscopy to better assess an etiology for anemia. The documentation manager, Sanford Reilly CRNA did obtain her transthoracic echocardiogram performed in [place] on August 26, a month ago, which showed significant findings, which included a normal-appearing pulmonic valve, but with a significant amount of pulmonary arterial hypertension. The summary was normal left ventricular systolic function with an ejection fraction of 60% to 65%. A moderately thickened left ventricular wall, [id number] mitral regurgitation, moderate tricuspid regurgitation and severe pulmonary hypertension with a right ventricular systolic pressure of 81 mmHg. Mindful of these significant findings, special care regarding endoscopy is warranted quite obviously. PATIENT NAME: ELIAN MONGE OPERATIVE REPORT DATE OF : 74 REPORT #: [id number] PHYSICIAN: KARTHIK FERNANDO MD PCP: PAM EPPS PA-C REPORT IS CONFIDENTIAL AND NOT TO BE RELEASED WITHOUT AUTHORIZATION [facility] [address], [place] [address] Draft The patient and her family understand the risk of bleeding, infection, and perforation, wished to proceed. FINDINGS: Upper endoscopy was normal. There was no lesion to account for anemia. Biopsies were obtained of the stomach for H pylori evaluation as well as to assess for celiac disease. On colonoscopy, the prep was good. Complete and full colonoscopy was completed. There was a linear polyp, which was very subtle at the junction between the cecum and the right colon, which was excised with cold snare polypectomy technique with morcellation. There was a left colonic lesion that may have simply been scope trauma, but nevertheless was notable and the mucosal area excised and application of hemoclip undertaken. PROCEDURE IN DETAIL: The patient was brought to the endoscopy suite and placed in lateral decubitus position, given lidocaine hypopharyngeal anesthesia. A bite block was placed. She was given intravenous sedation with combination of ketamine, fentanyl and Versed. Full cardiopulmonary monitoring was maintained. An Olympus video upper endoscope was passed into the hypopharynx. The vocal cords were visualized as normal. The scope was advanced to the esophagus, stomach and duodenum, all of which were essentially normal including on retroflexed view. Biopsies were taken the duodenum to assess for celiac disease in the antrum to assess for H pylori. CLOtest was negative 20 minutes post procedure. Retroflexed view showed a good flap valve. The esophagus upon withdrawal showed no evidence of abnormality or any lesion to account for anemia. Plans were then made for colonoscopy. Digital rectal examination was normal. The Olympus video colonoscope was passed into the rectum and manipulated throughout the colon, ultimately intubating the cecum itself. The ileocecal valve and appendiceal orifice were normal. Upon withdrawal of scope, a suspicious linear mucosal thickening was noted. Narrow-band imaging confirmed this to be an adenomatous polyp. Given its linear nature, the central portion was excised with cold morcellation technique and cold snare technique used to excise the portions. Additional morcellation excision was undertaken, there was no untoward bleeding. The scope was then withdrawn. Examination showed no sign of abnormality into the left colon, where a blood clot in a linear configuration appeared to be suspended from the wall. This was not particularly an arteriovenous malformation as so far as could be told, but did emanate from a slight mucosal defect. On the basis of that, the base was excised and to be certain no hemorrhage would occur, hemoclip applied. Further withdrawal of scope showed no sign of other abnormality. Retroflexed view was normal. Scope was removed. The patient was taken to the recovery room in good condition. PATIENT NAME: ELIAN MONGE OPERATIVE REPORT DATE OF : 74 REPORT #: [id number] PHYSICIAN: KARTHIK FERNANDO MD PCP: PAM EPPS PA-C REPORT IS CONFIDENTIAL AND NOT TO BE RELEASED WITHOUT AUTHORIZATION [address] [address] Draft CONCLUDING DIAGNOSIS: No lesion to account for anemia seen on upper endoscopy or colonoscopy. PLAN: She will return to the ongoing care of Pam Epps for further evaluation. We would recommend repeat colonoscopy between 7 and 10 years based on current guidelines based on the polyp depending on its histology. If it is serrated adenoma, an interval sooner would be appropriate. MD GIFTY Youngblood/SHAHRZAD /[id number] cc: Pam Epps PA-C Copies: PAM EPPS PA-C ~ PATIENT NAME: ELIAN MONGE OPERATIVE REPORT DATE OF : 74 REPORT #: [id number] PHYSICIAN: KARTHIK FERNANDO MD PCP: PAM EPPS PA-C REPORT IS CONFIDENTIAL AND NOT TO BE RELEASED WITHOUT AUTHORIZATION
[~2024-09-24 10:00] MED LIST: ACULAR5 ML OP; AMLODIPINE BESYL5 MG PO; ATORVASTATIN CA20 MG PO; CARVEDILOL3.125 MG PO; FERROUS SULFAT325 M1 PO; IBLOOD GLUCOSE TEST STRIP 1 EA TEST VI PRN; JARDIANCE25 MG PO; LACTATED RINGER'S 1,000 ML IV SCH; LANTUS SOL100 UNIT/1 SUB-Q; LIDOCAINE HCL 1% 5 ML SDV INJ ONE; LISINOPRIL-HCT1 EAC1 PO; LISINOPRIL10 MG PO; METFORMIN HCL500 M1 PO; OMEPRAZOLE20 MG PO; PREDNISOLONE ACE5 ML OP; TORSEMIDE20 MG PO; VITAMIN C250 MG PO; VITAMIN D21250 MCG PO; VITAMIN D325 MC2 PO
[2024-09-24 10:21] VITALS: BP 153/45
[2024-09-24] MEDS ORDERED: DEXTROSE 50% 50 ML SYR IV ONE ×2 (10:30→11:45)
--- NOTE | 2024-09-24 10:36 | NUR ---
1010 PT STATES SHE HAD LOW BLOOD GLUCOSE THIS MORNING. BG IS 46. SPOKE WITH SUKUMAR HARTLEY, VERBAL ORDER TAKEN FOR 25MLS OF D50 IV TO BE GIVEN ONCE NOW.
--- NOTE | 2024-09-24 11:38 | NUR ---
1133 blood glucose taken again per direct care specialist request. BG IS 57. SPOKE WITH HORSE SHOER. VERBAL ORDER GIVEN FOR 25MLS OF D50 IV ONCE NOW.
--- NOTE | 2024-09-24 12:01 | NUR ---
1200 BLOOD GLUCOSE CHECKED AGAIN PER GROUND SURVEILLANCE SYSTEMS OPERATOR AFTER D50 GIVEN. BLOOD GLUCOSE 91. GROUND SURVEILLANCE SYSTEMS OPERATOR AWARE.
[2024-09-24] MEDS ORDERED: fentaNYL citrate 100 MCG/2 ML VIAL ONE (12:24)
[2024-09-24] MEDS ORDERED: KETAMINE in NS 50 MG/5 ML SYR ONE (12:24)
[2024-09-24] MEDS ORDERED: MIDAZOLAM HCL 2 MG/2 ML VIAL ONE ×2 (12:25→13:00)
--- NOTE | 2024-09-24 14:11 | NUR ---
09/24/24 1411 Trudy Aguilar 1307- PT ARRIVES TO THE PACU WITH AN ORAL AIRWAY IN PLACE WITH 3L OF O2 VIA NASAL CANNULA. INCLINOMETER TESTER REMOVES AIRWAY PT IS RESPONSIVE AND ABLE TO FOLLOW COMMANDS TO OPEN HER MOUTH. BREATHING IS EVEN AND UNLABORED. PT IS ENCOURAGED TO PASS GAS AND IS DOING SO OFF AND ON. CBG IS 59. CHECK WITH MD AND ABLE TO GIVE ORANGE JUICE. PT TOLERATES WELL WITH HOB RAISED. ALL MONITORS PUT IN PLACE AND VSS. 1315- PT DENIES PAIN AND NAUSEA. VSS. PT ORIENTED TO PACU. 1321- MD AT BEDSIDE AND DISCUSSES PLAN OF CARE. 1335- PT REQUESTING WATER AND PROVIDED. PT TOLERATING WELL. 1350-CBG TAKEN, 54. MORE ORANGE JUICE AND VANILLA PUDDING PROVIDED. PLAN OF CARE DISCUSSED IN REGULATING HER BLOOD SUGAR. PT SALINE LOCKED AT THIS TIME. 1408- PT GIVEN TURKEY SANDWICH AND HOB INCREASED TO HIGH FOWLERS. CBG IS 64. PT ENCOURAGED TO DRINK MORE ORANGE JUICE. PT IS TOLERATING WELL.
[2024-09-24 14:40] VITALS: BP 145/61
--- NOTE | 2024-09-28 16:14 | PATH ---
[facility] [address] [place], [place] [address] Signed SPECIMEN(S): A DUODENAL BIOPSY SPECIMEN(S): B ANTRUM/PYLORUS BIOPSY SPECIMEN(S): C CECUM COLON POLYP SPECIMEN(S): D COLON BIOPSY SPECIMEN SOURCE: A. DUODENAL BIOPSY B. ANTRUM/PYLORUS BIOPSY C. CECUM COLON POLYP D. COLON BIOPSY CLINICAL HISTORY: Pre-:Heme + stool; anemia. Post: Normal EGD, cecum polyp. D: Rule out colonic mucosa FINAL PATHOLOGIC DIAGNOSIS: A. Duodenal biopsy: - Benign duodenal mucosa, negative for specific diagnostic abnormality. - Fragment of colonic type mucosa with tubular adenoma (one fragment). - See comment. B. Antrum/pylorus biopsy: - Benign gastric mucosa with focal slight chronic inflammation. - Negative for evidence of Helicobacter organisms on routine HE-stained sections. C. Cecum colon polyp: - Tubular adenoma (multiple fragments). D. Colon biopsy: - Benign colonic mucosa, negative for pathologic inflammation. - Slight features consistent with melanosis coli. COMMENT: Specimen A, labeled "duodenal biopsy" was submitted containing three tissue fragments, one of which has features of colonic mucosa with tubular adenoma. Clinical correlation is requested to determine the source, although it appears likely that it represents a contaminant from the cecum colon polyp (specimen C). OpalVR:lenora MICROSCOPIC EXAMINATION: Histologic sections of all submitted blocks are examined by light microscopy. These findings, together with the gross examination, support the pathologic PATIENT NAME: MARIPOSAELIAN PATHOLOGY DATE OF : 74 REPORT #: [id number] PHYSICIAN: MARCELINO GTZ PCP: ESTRELLITA LAND PA-C REPORT IS CONFIDENTIAL AND NOT TO BE RELEASED WITHOUT AUTHORIZATION [facility] [address] [place], [place] [address] Signed diagnosis. GROSS DESCRIPTION: A. The specimen, labeled and designated "Mariposa, duodenum biopsy," is received in formalin and consists of three pascal soft tissue fragments, ranging from 0.1-0.4 cm. Entirely submitted in (A1). B. The specimen, labeled and designated "Mariposa, antrum biopsy," is received in formalin and consists of two pascal soft tissue fragments, ranging from 0.2 to 0.4 cm. Entirely submitted in (B1). C. The specimen, labeled and designated "Mariposa, cecum polyp," is received in formalin and consists of six pascal soft tissue fragments, ranging from 0.1 to 0.2 cm. Entirely submitted in (C1). D. The specimen, labeled and designated "Mariposa, colon biopsy," is received in formalin and consists of three pascal soft tissue fragments, ranging from 0.1 to 0.2 cm. Entirely submitted in (D1). JS (under the direct supervision of a pathologist) The Gross Description was prepared using a voice recognition system. The report was reviewed for accuracy; however, sound-alike word errors, addition and/or deletions may occur. If there is any question about this report, please contact Client Services. PERFORMING LABORATORY: Technical component was performed by [facility], [address] [place] [id number] (CLIA# [id number]). Professional interpretation was performed by [facility], [address] [place] [phone] (CLIA#: [id number]). Diagnostician: Dean Malloy MD Pathologist Electronically Signed 09/28/2024 Copies: ~ PATIENT NAME: ELIAN MONGE PATHOLOGY DATE OF : 74 REPORT #: [id number] PHYSICIAN: MARCELINO PATHOLOGY PCP: ESTRELLITA LAND PA-C REPORT IS CONFIDENTIAL AND NOT TO BE RELEASED WITHOUT AUTHORIZATION
== END 2024-09-24 15:00 | disposition home or self-care (01) ==
LOC: DS 10:00
PROVIDERS: ATTEND Surgery
PROC: 0DB98ZX Excision of Duodenum, Via Natural or Artificial Opening Endoscopic, Diagnostic (ICD-10-PCS; principal; 2024-09-24 11:15)
PROC: 0DBE8ZX Excision of Large Intestine, Via Natural or Artificial Opening Endoscopic, Diagnostic (ICD-10-PCS; 2024-09-24 11:15)
DX: D12.0 Benign neoplasm of cecum (principal); D64.9 Anemia, unspecified; K63.5 Polyp of colon; I27.20 Pulmonary hypertension, unspecified; K21.9 Gastro-esophageal reflux disease without esophagitis; E11.9 Type 2 diabetes mellitus without complications; I10 Essential (primary) hypertension; Z79.4 Long term (current) use of insulin; Z79.899 Other long term (current) drug therapy
CPT/HCPCS: 00813; 84703; J2250; J3010; J3490; J7121

== ENCOUNTER 2024-10-13 15:31 | Emergency (ER) | payer OTHER ==
[~2024-10-13] VITALS: Ht 170.2 cm; Wt 111.6 kg
[~2024-10-13 15:31] MED LIST changes: -IBLOOD GLUCOSE TEST STRIP 1 EA TEST VI PRN; -LACTATED RINGER'S 1,000 ML IV SCH; -LIDOCAINE HCL 1% 5 ML SDV INJ ONE
[2024-10-13 16:52] LABS: BASOPHILS 0.8 % (0-2); EOSINOPHILS 3.2 % (0-6); HEMATOCRIT 21.3 % (35.0-50.0); HEMOGLOBIN 6.9 g/dL (12.0-18.0); LYMPHOCYTES 15.9 % (24-44); MCH 31.4 (27-36); MCHC 32.2 g/dl (30-36); MCV 97.4 fl (81-99); MONOCYTES 5.8 % (0-12); NEUTROPHILS 74.3 % (39-80); PLATELET COUNT 94 K/uL (140-440); RBC 2.19 M/ul (4.3-5.7); RDW 17.3 (10.5-15.0)
[2024-10-13] MEDS ORDERED: FUROSEMIDE 40 MG/4 ML VIAL IV ONE (17:00)
[2024-10-13 17:18] LABS: ALBUMIN 2.6 g/dL (3.4-5.0); ALBUMIN/GLOBULIN RATIO 0.74 (1.1-2.4); ANION GAP 14.6 (7-21); BILIRUBIN, TOTAL 0.3 ng/dL (0.2-1.0); BUN/CREATININE RATIO 41.36 (6.0-28.6); CALCIUM 8.4 mg/dL (8.5-10.1); CREATININE, SERUM 2.78 mg/dL (0.55-1.02); MAGNESIUM 3.3 mg/dL (1.8-2.4); POTASSIUM 5.6 mmol/L (3.5-5.1); PROTEIN, TOTAL 6.1 g/dL (6.4-8.2)
[2024-10-13 18:50] LABS: BILIRUBIN, URINE NEGATIVE (negative); BLOOD/HGB, URINE SMALL (Negative); KETONE, URINE NEGATIVE (Negative); LEUK ESTERASE, URINE NEGATIVE (negative); NITRITE, URINE NEGATIVE (negative); PH, URINE 5.5 (5-7)
[2024-10-13 19:00] LABS: CASTS, URINE NONE SEEN \\lpf; COLLECTION TYPE, URINE CLEAN CATCH; CRYSTALS, URINE AMORPHOUS URATES 1+ (0-1+); EPITHELIAL CELLS, URINE NONE SEEN /lpf (0-1+); REFLEX CULTURE, URINE No (No)
[2024-10-13 19:01] LABS: BACTERIA, URINE NONE SEEN /hpf (negative)
[2024-10-13] MEDS ORDERED: CALCIUM CHLORIDE 1,000 MG/10 ML SYR IV ONE (20:45)
[2024-10-13] MEDS ORDERED: SODIUM POLYSTYRENE SULFONATE 15 GM/60 ML UDC PO ONE (21:00)
[2024-10-13 23:08] LABS: ANION GAP 12.4 (7-21); BUN/CREATININE RATIO 42.49 (6.0-28.6); CALCIUM 9.4 mg/dL (8.5-10.1); CREATININE, SERUM 2.73 mg/dL (0.55-1.02); POTASSIUM 5.4 mmol/L (3.5-5.1)
[2024-10-13] MEDS ORDERED: DEXTROSE 50% 50 ML SYR IV ONE (23:30)
[2024-10-13] MEDS ORDERED: Insulin Regular, Human 100 UNIT/ML ML IV ONE (23:30)
[2024-10-14 01:17] LABS: ANION GAP 13.1 (7-21); BUN/CREATININE RATIO 42.12 (6.0-28.6); CALCIUM 9.1 mg/dL (8.5-10.1); CREATININE, SERUM 2.73 mg/dL (0.55-1.02); POTASSIUM 5.1 mmol/L (3.5-5.1)
[2024-10-14] MEDS ORDERED: KIONEX 1515 GM/60 M PO (01:51)
[2024-10-14] MEDS ORDERED: TORSEMIDE20 MG PO (01:56)
[2024-10-14] MEDS ORDERED: TADALAFIL20 M1 PO (01:59)
[2024-10-14 02:30] VITALS: BP 159/66
--- NOTE | 2024-10-14 22:56 | EKG ---
[facility] [address] [facility] [place] [address] Signed Sinus bradycardia Cannot rule out Anterior infarct , age undetermined Abnormal ECG When compared with ECG of 25-AUG-2024 15:29, No significant change was found Confirmed by Kevan Whiting MD () on 10/14/2024 10:56:09 PM Electronically Signed By: KEVAN WHITING MD 10/14/24 2256 PATIENT NAME: MARIPOSAELIANTEJAS REID Electrocardiogram DATE OF : 74 PHYSICIAN: KEVAN WHITING MD REPORT #: [id number] REPORT IS CONFIDENTIAL AND NOT TO BE RELEASED WITHOUT AUTHORIZATION
== END 2024-10-14 02:30 | disposition home or self-care (01) ==
LOC: ED 15:31
PROVIDERS: Emergency Medicine; Family Medicine
DX: I13.0 Hypertensive heart and chronic kidney disease with heart failure and stage 1 through stage 4 chronic kidney disease, or unspecified chronic kidney disease (principal); I50.9 Heart failure, unspecified; E11.22 Type 2 diabetes mellitus with diabetic chronic kidney disease; N18.9 Chronic kidney disease, unspecified; I27.20 Pulmonary hypertension, unspecified; D64.9 Anemia, unspecified; E87.5 Hyperkalemia; Z79.4 Long term (current) use of insulin; Z79.84 Long term (current) use of oral hypoglycemic drugs; Z79.899 Other long term (current) drug therapy
CPT/HCPCS: 36415; 71045; 80048; 80053; 81001; 83735; 83880; 84484; 85025; 93005; 93010; 96374; 96375; 99284-25; J1815; J1940

== ENCOUNTER 2024-11-18 10:33 | Day surgery (SDC) | payer OTHER ==
[2024-11-16 11:47] VITALS: BP 170/63
[~2024-11-18] VITALS: Ht 170.2 cm; Wt 118.0 kg
[~2024-11-18 10:33] MED LIST changes: +IBLOOD GLUCOSE TEST STRIP 1 EA TEST VI PRN; +KIONEX 1515 GM/60 M PO; +LACTATED RINGER'S 1,000 ML IV SCH; +LIDOCAINE HCL 1% 5 ML SDV INJ ONE; +LISINOPRIL20 MG PO; +MIDAZOLAM HCL 5 MG/5 ML VIAL IV PRN; +SOAANZ40 MG PO; +TADALAFIL20 M1 PO; +fentaNYL citrate 100 MCG/2 ML VIAL IV PRN
[2024-11-18 10:57] VITALS: BP 183/62
[2024-11-18] MEDS ORDERED: CALCIUM ACETAT667 M1 PO (11:24)
[2024-11-18] MEDS ORDERED: LATANOPROST2.5 ML OPTH (11:25)
[2024-11-18 11:26] LABS: BASOPHILS 0.8 % (0-2); BASOPHILS, ABSOLUTE 0 %; EOSINOPHILS 1.3 % (0-6); EOSINOPHILS, ABSOLUTE 0; HEMATOCRIT 21.6 % (35.0-50.0); HEMOGLOBIN 7.2 g/dL (12.0-18.0); LYMPHOCYTES 15.5 % (24-44); LYMPHOCYTES, ABSOLUTE 0.6; MCH 31.4 (27-36); MCHC 33.5 g/dl (30-36); MCV 93.6 fl (81-99); MONOCYTES 4.8 % (0-12); MONOCYTES, ABSOLUTE 0.2; NEUTROPHILS 77.6 % (39-80); NEUTROPHILS, ABSOLUTE 2.9; PLATELET COUNT 92 K/uL (140-440); RBC 2.31 M/ul (4.3-5.7); RDW 15.7 (10.5-15.0)
[2024-11-18 11:40] LABS: ALBUMIN 2.8 g/dL (3.4-5.0); ALBUMIN/GLOBULIN RATIO 0.78 (1.1-2.4); ANION GAP 13.2 (7-21); BILIRUBIN, TOTAL 0.5 ng/dL (0.2-1.0); BUN/CREATININE RATIO 33.33 (6.0-28.6); CALCIUM 9.2 mg/dL (8.5-10.1); CREATININE, SERUM 2.28 mg/dL (0.55-1.02); POTASSIUM 3.2 mmol/L (3.5-5.1); PROTEIN, TOTAL 6.4 g/dL (6.4-8.2)
[2024-11-18] MEDS ORDERED: fentaNYL citrate 100 MCG/2 ML VIAL ONE (12:07)
[2024-11-18] MEDS ORDERED: MIDAZOLAM HCL 2 MG/2 ML VIAL ONE (12:07)
[2024-11-18] MEDS ORDERED: KETAMINE in NS 50 MG/5 ML SYR ONE (12:08)
--- NOTE | 2024-11-18 12:21 | NUR ---
PT IS BACK FROM WORKING WITH PHYSICAL THERAPY. HE HAS PASSED WORKING WITH PHYSICAL THERAPY AND IS SAFE TO GO HOME. THEY DO RECOMMENDED A HOME HEALTH REFERRAL FOR PT/OT AND A BATH AID SINCE HE LIVES HOME ALONE.
[2024-11-18] MEDS ORDERED: ondansetron HCL 4 MG/2 ML VIAL ONE (12:28)
--- NOTE | 2024-11-18 13:20 | NUR ---
11/18/24 1320 Trudy Aguilar 1231- PT ARRIVES TO PACU WITH A NATURAL AIRWAY ON 8L OF O2 VIA MASK. BREATHING IS EVEN AND UNLABORED. MONITORS PUT IN PLACE. VSS. PT IS ABLE TO REPOND TO QUESTIONS WITH VERBAL AND TACTILE STIMULI AND IMMEDIATLY FALLS BACK TO SLEEP . SURGICAL SITES ASSESSED AND THE ONE STEPHANIE HER LERFT SIDE IS CDI AND THE ONE OVER THE RIGHT SHOWS SHADOWING ON THE BANDAID. 1235- PT DENIES PAIN AND NAUSEA. NO APPARENT SIGNS OF DISTRESS. 1237- CBG IS 99. 1253- PT O2 IS TURNED OFF AND REMOVED. FOR O2 SATS THAT MAINTAIN ABOVE 92%. 1300- PT REPORTS 0/10 FOR PAIN BUT CLAIMS THAT SHE FEELS "SORE". 1305- PT O2 SATS DECREASE TO 88%. PT IS ENCOURAGED TO COUGH AND DEEP BREATHE. PT O2 SATS INCREASE TO 94% AND SLOWLY DECREASE TO LOW 90S. PT PUT ON 1L OF O2 VIA NC. PT IS ABLE TO MAINTAIN O2 SATS ABOVE 93%. PT DENIES PAIN AND NAUSEA. PT ROLLS TO HER L SIDE WITH MINIMAL ASSISTANCE. 1315- PT HOB INCREASED AND PT SIPPING ON WATER. PT TOLERATING WATER WELL. PT RESTING WITH EYES CLOSED.
--- NOTE | 2024-11-18 13:25 | NUR ---
1325- PT ARRIVES FROM PACU. PT IS SITTING UP AND SIPPING ON WATER AND TOLERATING WELL. PLAN OF CARE DISCUSSED WITH MOTHER AT BEDSIDE. SURGICAL SITE THE THE LEFT IS CDI AND THE RIGHT SHOWS SOME SHADOWING ON THE BANDAID. PT IS ON 1L OF O2 VIA NC. O2 SATS ARE IN THE HIGH 90S. PT DENIES PAIN AND NAUSEA. STRETCHER IS IN THE LOWEST POSITION AND LOCKED AND CALL LIGHT IS WITHIN REACH. SUGAR FREE VANILLA PUDDING PROVIDED AND PT TOLERATING WELL. 1342- O2 SATS ARE ABOVE 95% AND O2 IS TURNED OFF AT THIS TIME. PT RESTING IN STRETCHER AND TALKING WITH HER MOTHER.
[2024-11-18 13:34] VITALS: BP 174/54
[2024-11-18 14:40] VITALS: BP 164/57
--- NOTE | 2024-11-18 15:17 | NUR ---
1500- VSS. PT REPORTS NEEDING TO USE THE RESTROOM. PT IS ABLE TO AMBULATE TO THE RESTROOM WITH MINIMAL ASSIST. GAIT IS STEADY AND EVEN. PT IS ABLE TO VOID AN UNMEASURED AMOUNT. PT IS ABLE TO MAINTAIN AN O2 SAT ABOVE 90% ON ROOM AIR. 1513- PT RETURNS FROM THE RESTROOM. PT IS SITTING AT THE SIDE OF THE BED. PT DENIES PAIN AND NAUSEA. PT GETTING DRESSED WITH THE ASSISTANCE OF HER MOTHER. THIS RN HELPS WITH SOCKS AND SHOES. DISCHARGE PAPERWORK GONE OVER. NO QUESTIONS OR CONCERNS. PT HAS ALL BELONGINGS. PT DC FROM DAY SURGERY.
[2024-11-19 09:23] LABS: IMMUNOGLOBULIN A 248 mg/dL (68-408); IMMUNOGLOBULIN G 764 mg/dL (768-1632); IMMUNOGLOBULIN M 68 mg/dL (35-263); KAPPA QNT FREE LIGHT CHAINS 131.26 mg/L (3.30-19.40); KAPPA/LAMBDA FREE LIGHT CH RAT 2.71 (0.26-1.65); LAMBDA QNT FREE LIGHT CHAINS 48.52 mg/L (5.71-26.30)
[2024-11-19 21:51] LABS: BETA-2-MICROGLOBULIN,SER/PLAS 15.2 mg/L (0.8-2.4)
[2024-11-21 08:11] LABS: ALBUMIN 3.12 g/dL (3.75-5.01); ALPHA 2 GLOBULIN 0.64 g/dL (0.48-1.05); BETA GLOBULIN 0.84 g/dL (0.48-1.10); IMMUNOFIXATION REFLEX Not Done (()); TOTAL PROTEIN,SERUM 5.7 g/dL (6.3-8.2)
--- NOTE | 2024-11-23 14:50 | PATH ---
[facility] [address] [facility] [place] [address] Signed SPECIMEN(S): A BONE MARROW - CORE SPECIMEN(S): B BONE MARROW - ASPIRATION SPECIMEN(S): C FLOW CYTOMETRY, BM EDTA ASP CLINICAL HISTORY: Multiple myeloma. 54 years old with pancytopenia and proteinuria, kidney disease, suspect myeloma DIAGNOSIS SUMMARY: Peripheral blood - Pancytopenia, absolute neutrophil count 2,900/ul. - No platelet clumping, blasts, or circulating plasma cells are identified. Bone marrow biopsy and aspiration: - Normocellular marrow, 35%, with less than 1% blasts. - Trilineage hematopoiesis with focal megakaryocytic dyspoiesis. - 1% plasma cells with no light chain restriction. - See diagnostic comment. DIAGNOSTIC COMMENT: Pancytopenia with no marrow malignancy or overt myelodysplasia are noted. A FISH panel for MDS and chromosome analysis are pending to help exclude an occult myelodysplasia (MDS). Exclusion of reactive etiologies for pancytopenia is needed to include evaluation for possible infection (typically viral), drug effects, nutritional deficiencies, and autoimmune disorders. No plasma cell neoplasm is detected. No plasma cell clonality is noted by flow cytometry or IRMA staining. 1% polyclonal plasma cells are identified. A Congo Red stain is negative for amyloid. HISTORICAL SUMMARY: 54 yo female with no prior hematology case history in the [employer] database, presents with pancytopenia and proteinuria. There is a clinical concern for a plasma cell neoplasm. PERIPHERAL BLOOD: HEMOGRAM (11/18/2024): WBC 3.8 K/ul, RBC 2.31 M/ul, HGB 7.2 g/dl, HCT 21.6%, MCV 93.6 fl, MCH 31.4 pg, MCHC 33.5 g/dl, RDW 15.7%, PLT 92 K/ul, MPV 8.2 fl. AUTOMATED DIFFERENTIAL COUNT: Neutrophils 77.6%, lymphocytes 15.5%, monocytes 4.8%, eosinophils 1.3%, basophils 0.8%. The red blood cells are normocytic and normochromic with mild PATIENT NAME: ELIAN MONGE PATHOLOGY DATE OF : 74 REPORT #: [id number] PHYSICIAN: MARCELINO PATHOLOGY PCP: ESTRELLITA LAND PA-C REPORT IS CONFIDENTIAL AND NOT TO BE RELEASED WITHOUT AUTHORIZATION [facility] [address] [place], [place] [address] Signed aniso-poikilocytosis. 1+ teardrop cells are present. The neutrophils are unremarkable. Lymphocytes are composed of small mature appearing forms. Platelets are decreased in number with no platelet clumping or RBC microangiopathic effect identified. No blasts or plasma cells are identified. BONE MARROW: ASPIRATE SMEARS/TOUCH IMPRINT: The aspirate smears are adequate for evaluation. Scattered erythroid precursors show adequate maturation with essentially normal morphology. The myeloid precursors show full maturation with unremarkable morphology. There is no increase in plasma cells or blasts. Megakaryocytes are identified with a normal morphology. BONE MARROW DIFFERENTIAL COUNT (300 cells): Blasts less than 1%. promyelocytes less than 1%, myelocytes 5%, metamyelocytes/bands/segs 48%, erythroid precursors 28%, lymphocytes 9%, monocytes 3%, eosinophils 6%, plasma cells l%. M:E ratio: 2.1:1 BONE MARROW CORE BIOPSY/ASPIRATE CLOT/CELL BLOCK: The aspirate clot section and the core biopsy are adequate for evaluation. The core biopsy demonstrates unremarkable trabecular bone. The cellularity is normal for age, estimated at 35%. The erythroid precursors are within normal limits with essentially unremarkable maturation. The myeloid precursors are unremarkable with no significant dyspoiesis. Blasts are not increased. Megakaryocytes appear normal in number and in morphology. One circumscribed lymphoid aggregate is noted in the biopsy section. Stains are performed to evaluate the small lymphoid aggregate. No granulomas or foreign malignant cells are detected. SPECIAL STAINS (with adequate controls): - iron (aspirate smear): Decreased marrow iron stores by Prussian Blue staining. No ring sideroblasts are identified. - iron (cell block): Negative by Prussian Blue staining. - reticulin (block A1): No reticulin fibrosis. - PAS (block A1): Megakaryocytes are normal in number and morphology. - Congo Red for amyloid (block A1): IMMUNOHISTOCHEMISTRY STAINS (performed on block A1 with adequate controls). - CD138: 1% with no atypical aggregates. - IRMA Bow and Lambda: Polymorphous. No clonality detected. - Congo Red (for amyloid): Negative for amyloid. - PAX5: Less than 1% PATIENT NAME: ELIAN MONGE PATHOLOGY DATE OF : 74 REPORT #: [id number] PHYSICIAN: MARCELINO GTZ PCP: ESTRELLITA LAND PA-C REPORT IS CONFIDENTIAL AND NOT TO BE RELEASED WITHOUT AUTHORIZATION [address] [address] Signed - CD3: 2% with no atypical aggregates. FLOW CYTOMETRY: Bone marrow, flow cytometry: - No diagnostic abnormal populations are identified by flow cytometry. - No plasma cell or lymphoid clonality is identified. - See comment. COMMENT: 0.9% myeloblasts are identified with no aberrant marking. The lymphoid population is unremarkable with no clonality detected. The myeloid and monocyte thompson are also essentially unremarkable. No plasma cell clonality is detected. While no diagnostic hematopoietic abnormality is detected in this study, correlation with clinical, morphologic, and genetic findings is recommended for full interpretation and to assess for disease processes not fully examined by flow cytometry analysis, including myelodysplastic syndrome or myeloproliferative neoplasm. FLOW CYTOMETRY ANALYSIS: FLOW DIFFERENTIAL (% Total CD45 vs. SSC gating): Myeloid 78%; Lymphoid 5%; Monocyte 5%; Dim CD45/Blast: 0.9%. Cell Count: 7.0 x 10*3/uL. POPULATION ANALYSIS: BLASTS: Analysis of the dim CD45 gate demonstrates 0.9% myeloblasts by CD34/CD117. A discrete hematogone population is not detected. LYMPHOID CELLS: The lymphocyte gate comprises 5% of total events and includes 82% T-cells with a CD4:CD8 ratio of 1.7:1 and normal rincon T-cell antigen expression. 7% of lymphocytes are polyclonal B-cells with a kappa:lambda ratio of 1.2:1. The remainders are NK-cells. MYELOID CELLS: The myeloid population comprises 78% of the total events. Increased CD56 expression is observed. MONOCYTES: The monocyte population comprises 2% of the total events. Monocytes are not increased. Some increased CD15 expression is observed. PLASMA CELLS: A clinical concern for myeloma is noted. For this reason, select additional antibodies are run to further characterize the plasma cells. 0.2% polyclonal plasma cells are detected (n=111) expressing CD45 DIM-NEG, CD38 BR, CD138 MOD-BR, CD19 (variable, partial), and CD56 (variable, partial) while negative for CD20 with a ckappa:clambda ratio of 1.9:1. Initial Antibodies Used: KAPPA, LAMBDA, CD20, CD10, CD19, CD23, CD38, CD16, CD56, CD8, CD5, CD2, CD4, CD7, CD3, CD14, CD33, CD13, HLADR, CD34, CD117, CD15, PATIENT NAME: ELIAN MONGE PATHOLOGY DATE OF : 74 REPORT #: [id number] PHYSICIAN: MARCELINO GTZ PCP: ESTRELLITA LAND PA-C REPORT IS CONFIDENTIAL AND NOT TO BE RELEASED WITHOUT AUTHORIZATION [facility] [address] [place], [place] [address] Signed CD45. Additional Antibodies (necessary for further plasma cell analysis): ckappa, clambda, CD138. Total Antibodies Used: 26. JNB FINAL DIAGNOSIS PERFORMED BY: Janusz Shipley MD, Nov 19 2024 11:21AM CYTOGENETICS: Chromosome analysis is pending. FISH ANALYSIS: FISH panels for MDS and Multiple myeloma are pending. GROSS DESCRIPTION: Two specimens are received in two containers A. The specimen, labeled and designated "Cristian, bone marrow core biopsy," is received in formalin and consists of one pascal cylindrical core of bone that is 4.0 cm long and 0.2 cm in diameter. After decalcification in Immunocal the specimen is entirely submitted in (A1). B. The specimen, labeled and designated "Cristian, bone marrow clot," is received in formalin and consists of a 1.5 x 1.2 x 0.2 cm aggregate of red brown clot material. Entirely submitted in (B1). JS (under the direct supervision of a pathologist) The Gross Description was prepared using a voice recognition system. The report was reviewed for accuracy; however, sound-alike word errors, addition and/or deletions may occur. If there is any question about this report, please contact Client Services. ADDITIONAL NOTES: Immunohistochemical and/or in situ hybridization studies if performed in this case included appropriate positive controls that reacted as expected. This test was developed and its performance characteristics determined by [facility]. It has not been cleared or approved by the U.S. Food and Drug Administration. The FDA has determined that such clearance or approval is not necessary. This test is used for clinical purposes. It should not be regarded as investigational or for research. [facility] is certified under the Clinical Laboratory Improvement Amendments of 1988 (CLIA) as qualified to perform high complexity clinical laboratory testing. In this case, certain antibodies were performed by both immunohistochemistry and flow cytometry analysis because flow cytometry analysis did not fully PATIENT NAME: ELIAN MONGE PATHOLOGY DATE OF : 74 REPORT #: [id number] PHYSICIAN: MARCELINO GTZ PCP: ESTRELLITA LAND PA-C REPORT IS CONFIDENTIAL AND NOT TO BE RELEASED WITHOUT AUTHORIZATION [address] [address] Signed explain all the light microscopic findings. Immunohistochemistry aided in the analysis. Both methods are deemed medically necessary in this case. This test was developed and its performance characteristics determined by [facility]. It has not been cleared or approved by the US Food and Drug Administration. The FDA does not require this test to go through premarket FDA review. This test is used for clinical purposes. It should not be regarded as investigational or for research. This laboratory is certified under the Clinical Laboratory Improvement Amendments (CLIA) as qualified to perform high complexity clinical laboratory testing. PERFORMING LABORATORY: The technical preparation was performed by [facility], [address] [place], [place] [address] [address] (CLIA#: [id number]). Professional interpretation was performed by [facility], [address] [place] [phone] (CLIA#: [id number]). Technical component was performed by [facility], [address] [place] [id number] (CLIA# [id number]). Professional interpretation was performed by [facility], [address] [place] [phone] (CLIA#: [id number]). IMAGES: [id number]: [id number]: [id number] Diagnostician: Janusz Shipley MD Pathologist Electronically Signed 11/23/2024 Copies: ~ PATIENT NAME: ELIAN MONGE PATHOLOGY DATE OF : 74 REPORT #: [id number] PHYSICIAN: MARCELINO GTZ PCP: ESTRELLITA LAND PA-C REPORT IS CONFIDENTIAL AND NOT TO BE RELEASED WITHOUT AUTHORIZATION
== END 2024-11-18 15:12 | disposition home or self-care (01) ==
LOC: DS 10:33
PROVIDERS: ATTEND Specialist
PROC: 07DT0ZX Extraction of Bone Marrow, Open Approach, Diagnostic (ICD-10-PCS; 2024-11-18)
PROC: 079T3ZX Drainage of Bone Marrow, Percutaneous Approach, Diagnostic (ICD-10-PCS; principal; 2024-11-18 12:00)
DX: D61.818 Other pancytopenia (principal); I13.0 Hypertensive heart and chronic kidney disease with heart failure and stage 1 through stage 4 chronic kidney disease, or unspecified chronic kidney disease; E11.22 Type 2 diabetes mellitus with diabetic chronic kidney disease; N18.9 Chronic kidney disease, unspecified; I50.9 Heart failure, unspecified; Z79.4 Long term (current) use of insulin; Z79.899 Other long term (current) drug therapy
CPT/HCPCS: 01112; 36415; 80053; 82232; 83615; 85025; J2250; J2405; J3010; J3490; J7121